=== PATIENT | male | born 1955 | race Caucasian/White ===

== ENCOUNTER → 2016-08-11 | Outpatient (CLI) | payer BC ==
--- NOTE | 2016-08-11 14:59 | DI ---
XR TIB/FIB 2VW,08/11/2016 10:04 AM: Clinical History: Left tibia/fibular pain. Previous Exam: February 26, 2016 Findings: AP and lateral views of the tibia and fibula are obtained, and demonstrate postsurgical changes consi stent with screw and plate fixation of the distal fibula. There is also an IM gerber noted within the tibia. There is lack screw fixation of the medial malleolus. There is a small hypodense area within the medial talar dome. Impression: Comminuted fracture of the left ankle with postsurgical fixation as above.
== END ==
LOC: ORTHO 09:56
PROVIDERS: ATTEND Orthopaedic Surgery
DX: M79.662 Pain in left lower leg (principal); S82.832E Other fracture of upper and lower end of left fibula, subsequent encounter for open fracture type I or II with routine healing; S82.392 Other fracture of lower end of left tibia
CPT/HCPCS: 73590

== ENCOUNTER → 2016-08-18 | Outpatient (CLI) | payer OTHER, BC ==
[2016-08-18 13:36] LABS: BLOOD UREA NITROGEN 16 mg/dL (7-22); BUN/CREATININE RATIO 17.77 (6-20); CALCIUM 9.4 mg/dL (8.7-10.7); EST GLOMERULAR FILTRATION > 60 (>60 ml/min/1.73m(2)); SERUM ALBUMIN 4.3 g/dL (3.5-4.8)
[2016-08-18 13:53] LABS: HEMATOCRIT 45.8 % (42.0-52.0); HEMOGLOBIN 15.5 g/dL (14.0-18.0); MEAN CORPUSCULAR HEMOGLOBIN 28.7 PG (27-31); MEAN CORPUSCULAR HGB CONC 33.8 g/dL (33-37); MEAN CORPUSCULAR VOLUME 84.7 FL (80-90); MEAN PLATELET VOLUME 9.9 FL (7.4-12.2); RED BLOOD COUNT 5.41 10^6/uL (4.70-6.10)
--- NOTE | 2016-08-18 18:12 | EKG ---
[address] [address] Measurements Intervals [place] Rate: 92 P: 59 TN: 190 QRS: 23 QRSD: 84 T: 29 QT: 324 QTc: 374 Interpretive Statements SINUS RHYTHM WITH OCCASIONAL VENTRICULAR PREMATURE COMPLEXES No previous ECG available for comparison Electronically Signed On 08-19-16 08:33:30 MDT by Bakari Webb [email or web address]
== END ==
LOC: LAB 13:03
PROVIDERS: ATTEND Orthopaedic Surgery
DX: Z01.812 Encounter for preprocedural laboratory examination (principal); Z01.810 Encounter for preprocedural cardiovascular examination; S82.252M Displaced comminuted fracture of shaft of left tibia, subsequent encounter for open fracture type I or II with nonunion
CPT/HCPCS: 36415; 80053; 85027; 87641; 93005; 93010

== ENCOUNTER 2016-08-28 09:56 | Day surgery (SDC) | payer OTHER, BC ==
[~2016-08-28 09:56] MED LIST: LIDOCAINE W/ SODIUM BICARB 0.5 ML SYR ONE; Lactated Ringers 1,000 ML PRIMARY IV ONE; ceFAZolin Inj 2gm (Premix) 50 ML IV ONE
[2016-08-28] MEDS ORDERED: BUPIVACAINE 0.25% W/ EPI - 10 ML VIAL ONE (11:09)
[2016-08-28] MEDS ORDERED: Lidocaine Inj 1% 0 ML ONE (11:09)
[2016-08-28] MEDS ORDERED: MIDAZOLAM 5 MG/1 ML ONE (11:12)
[2016-08-28] MEDS ORDERED: KETAMINE 100 MG/1 ML - 5 ML ONE (11:12)
[2016-08-28] MEDS ORDERED: fentaNYL Inj 250 MCG/5 ML VIAL ONE ×2 (11:12→13:05)
[2016-08-28] MEDS ORDERED: ROCURONIUM 10 MG/1 ML - 5 ML VIAL IVP ONE (11:16)
[2016-08-28] MEDS ORDERED: LIDOCAINE MPF 2% - 5 ML (20 MG/1 ML) ONE (11:18)
[2016-08-28] MEDS ORDERED: Lactated Ringers 1,000 ML PRIMARY IV ONE ×2 (13:27→15:54)
[2016-08-28] MEDS ORDERED: HYDROmorphone 2 MG/1 ML ONE (13:54)
[2016-08-28] MEDS ORDERED: SUGAMMADEX SODIUM 200 MG/2 ML VIAL IV ONE (14:19)
[2016-08-28] MEDS ORDERED: ONDANSETRON 4 MG/2 ML VIAL IVP PRN (14:28)
[2016-08-28] MEDS ORDERED: NORMAL SALINE 10 ML SYRINGE FLUSH IVP PRN (14:28)
[2016-08-28] MEDS ORDERED: oxyCODONE/APAP 7.5/325 Tab 1 TAB TAB PO PRN (14:28)
[2016-08-28] MEDS ORDERED: Lactated Ringers 1,000 ML PRIMARY IV SCH (14:30)
[2016-08-28] MEDS ORDERED: oxyCODONE/APAP 7.5/325 Tab 1 TAB TAB PO ONE (15:47)
[2016-08-28] MEDS ORDERED: fentaNYL Inj 250 MCG/5 ML VIAL IVP ONE (15:50)
[2016-08-28] MEDS ORDERED: fentaNYL Inj 100 MCG/2 ML VIAL ONE (15:52)
[2016-08-28 17:29] VITALS: RESP 17
[2016-08-28 17:39] VITALS: TEMP 97.6
== END 2016-08-28 17:17 | disposition home or self-care (01) ==
LOC: SDSC 09:56
PROVIDERS: ATTEND Orthopaedic Surgery
DX: S82.252M Displaced comminuted fracture of shaft of left tibia, subsequent encounter for open fracture type I or II with nonunion (principal)
CPT/HCPCS: 27758; 76001; 87070; 87075; 87205; J0690; J2704; J3010 ×2; J1170; J2001; J2250; J7120

== ENCOUNTER 2016-08-28 21:22 | Emergency (ER) | payer BC ==
--- NOTE | 2016-08-29 03:01 | PDOC ---
Lower Extremity Problem HPI - General Chief Complaint: General Medical Stated Complaint: BLEEDING FROM SURGICAL SITE Date Seen by Provider: 08/28/16 Time Seen by Provider: 21:30 Source: POSITIVE: Patient Exam Limitations: POSITIVE: No limitations Nurse's Notes Reviewed & Considered: Yes - History of Present Illness Initial Comments: The patient is a 61-year-old male who presents to the emergency department with bleeding from his incision site on his left leg. The patient has a history of distal tib-fib fracture in January of last year which required rodding of the tibia. He has had ongoing healing issues and had a repeat surgery earlier this afternoon with Dr. Schaffer. The gabino was apparently replaced with a bigger gabino. He states that since he's been home he has continued to have oozing from the lower incision site. This evening when he put his foot down there was blood actually dripping onto the floor from around the bandage. He denies any other associated complaints. He does not take any blood thinner medications and and generally does not have any bleeding problems. 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 Cardiovascular History: Denies History Respiratory History: Denies History Gastrointestinal History: Denies History Genitourinary History: Denies History Endocrine History: Denies History Musculoskeletal History: Back Pain Prosthesis or Implant: Yes (PLATE IN RIGHT SHOULDER/LEFT LEG GABINO SCREWS PLATES) Neurological History: Denies History Blood Disorders: Denies History Psychiatric History: Denies History History of Sexually Transmitted Diseases: No Cancer History: Denies History History of MDRO: No History of Other Communicable Diseases: No Alcohol Use: Occasionally Substance Use Type: None Previous Surgical History: Yes Type / Date of Surgery: R ORIF COLLAR BONE/BONE GRAFT FROM RIGHT HIP. LEFT TIBIAL ORIF WITH RODS/PLATES/SCREWS Anesthesia Reactions: No Malignant Hyperthermia: No Significant Family History: Heart disease, Diabetes, Hypertension Past Medical History Reviewed: Reviewed - No Changes ROS - Limitations ROS Limitations: No Limitations (Review of systems is otherwise noncontributory) Constitution: DENIES: Chills, Fever Lower Ext Problem Exam - General Appearance General Appearance: POSITIVE: Alert, Cooperative, No Acute Distress - Extremities Lower Extremity: POSITIVE: Other (Examination of the left lower extremity does reveal dressings from recent surgery earlier today. The dressing to the lower wound just proximal to the ankle is saturated with blood. This is removed. He has some bruising of darkish colored blood from the medial incision just proximal to the medial malleolus.) Vascular: POSITIVE: No Vascular Compromise Images - Uploaded Photos Uploaded Photos: Lower Ext Problem Progress - Patient's Progress MDM / ED Course: I did discuss the patient with Dr. Freire who is on-call for orthopedic surgery. He recommended a pressure dressing and posterior splint with follow- up with Dr. Schaffer. The patient was placed in a pressure dressing and did not appear to have any further significant bleeding. He was placed in a posterior splint to limit movement for now. He will return to the emergency room if continued or ongoing bleeding. He was advised that he can change the dressing as needed. He will contact Dr. Schaffer's office in the morning regarding follow -up. - Consult Counseled: POSITIVE: Patient, Family, RE: DX, RE: Need for F/U Patient Care Time - Estimated PCT Patient Care Time (In Minutes): 20 Vital Signs - VS Reviewed Vital Signs Reviewed: Yes (nursing documentation reviewed) Discharge Clinical Impression: Post-op bleeding Discharge Disposition: Discharged to Home Condition: Stable Additional Instructions: A new compression dressing has been placed over the wound as well as a splint to help keep the leg immobilized. Would recommend resting and keeping the leg elevated to help reduce bleeding. Return to the emergency room if increased bleeding, fever, any worsening or change in symptoms. Follow-up with Dr. Schaffer's office tomorrow. Follow Up With: NONE,NONE [Primary Care Provider] -
[2016-08-29 05:44] VITALS: RESP 18; TEMP 97.6
== END 2016-08-28 22:30 | disposition home or self-care (01) ==
LOC: ER 21:22
DX: M96.831 Postprocedural hemorrhage of a musculoskeletal structure following other procedure (principal)
CPT/HCPCS: 29515; 99282

== ENCOUNTER → 2016-09-10 | Outpatient (CLI) | payer OTHER, BC ==
[2016-09-10 11:23] LABS: CALCIUM 9.5 mg/dL (8.7-10.7)
[2016-09-10 11:41] LABS: VITAMIN D 25-HYDROXY 22.3 NG/ML (30-100)
== END ==
LOC: LAB 09:19
PROVIDERS: ATTEND Orthopaedic Surgery
DX: S82.252M Displaced comminuted fracture of shaft of left tibia, subsequent encounter for open fracture type I or II with nonunion (principal)
CPT/HCPCS: 36415; 82040; 82306; 82310; 84134; 84436; 84443; 84480

== ENCOUNTER → 2016-10-15 | Outpatient (CLI) | payer OTHER ==
--- NOTE | 2016-10-15 09:32 | DI ---
LEFT TIBIA AND FIBULA, 10/15/2016 8:35 AM: Clinical History: Left leg pain. Previous Exam: 08/11/2014. AP and lateral views are submitted. The patient is status post ORIF of fractures of the distal third of the tibia and the distal fibula and the medial malleolus. There is an intramedullary gerebr inserted into the tibia to transfix the tibial fracture. There is still a lucency at the fracture site and sin ce the prior exam, different screws have been inserted into the intramedullary gerber distally. There is some periosteal new bone formation extending into the interosseous membrane proximal to the tibial f racture site and the lateral margin of the tibial fracture on the AP projection is less visible sugge sting healing. On the AP projection, there has been no increase in lucency surrounding the intramedul naga gerber, but on the lateral projection, the lucency surrounding the intramedullary gerber is more promi nent in the proximal portion of the tibia suggesting there may be motion at the tibial fracture site. There has been no change in the appearance of the fibular fracture. Readin. Status post revision of the transfixion of the distal portion of the intramedullary gerber to the di stal tibial fracture site. There does appear to be some healing of the tibial fracture site, but ther e may also be some motion because there is increased lucency surrounding the IM gerber on the lateral pr ojection. 2. No change in the appearance of the distal fibular fracture site.
== END ==
LOC: RAD 09:28
PROVIDERS: ATTEND Orthopaedic Surgery
DX: S82.302E Unspecified fracture of lower end of left tibia, subsequent encounter for open fracture type I or II with routine healing (principal); S82.832E Other fracture of upper and lower end of left fibula, subsequent encounter for open fracture type I or II with routine healing
CPT/HCPCS: 73590

== ENCOUNTER 2016-10-27 15:14 | Emergency (ER) | payer OTHER ==
[2016-10-27] MEDS ORDERED: NORMAL SALINE 10 ML SYRINGE FLUSH IVP PRN (15:31)
[2016-10-27] MEDS ORDERED: Sodium Chloride 0.9% 1,000 ML PRIMARY IV ONE (15:34)
[2016-10-27 16:14] LABS: BLOOD UREA NITROGEN 13 mg/dL (7-22); BUN/CREATININE RATIO 18.57 (6-20); CALCIUM 9.2 mg/dL (8.7-10.7); EST GLOMERULAR FILTRATION > 60 (>60 ml/min/1.73m(2)); SERUM ALBUMIN 3.8 g/dL (3.5-4.8)
[2016-10-27 16:22] VITALS: RESP 20; TEMP 97.2
[2016-10-27 16:38] LABS: BASOPHILS % (AUTO) 0.7 % (0-1); EOSINOPHILS % (AUTO) 0.4 % (0-8); HEMATOCRIT 40.5 % (42.0-52.0); HEMOGLOBIN 13.8 g/dL (14.0-18.0); MEAN CORPUSCULAR HEMOGLOBIN 28.8 PG (27-31); MEAN CORPUSCULAR HGB CONC 34.1 g/dL (33-37); MEAN CORPUSCULAR VOLUME 84.4 FL (80-90); MEAN PLATELET VOLUME 9.6 FL (7.4-12.2); MONOCYTES % (AUTO) 8.2 % (5-15); NEUTROPHILS # (AUTO) 7.52 10*3/UL; NEUTROPHILS % (AUTO) 70.4 % (50-80)
[2016-10-27 16:39] LABS: BASOPHILS # (AUTO) 0.08 10*3/UL; EOSINOPHILS # (AUTO) 0.04 10*3/UL; LYMPHOCYTES # (AUTO) 2.16 10*3/uL; MONOCYTES # (AUTO) 0.88 10*3/UL (0.3-0.8); PLATELET MORPHOLOGY COMMENT NORMAL MORPHOLOGY (NORM); RBC MORPHOLOGY COMMENT NORMAL MORPHOLOGY (NORM); WBC MORPHOLOGY COMMENT NORMAL MORPHOLOGY (NORM)
--- NOTE | 2016-10-27 17:53 | PDOC ---
Lower Extremity Problem HPI - General Chief Complaint: Lower Extremity Problem/Injury Stated Complaint: Left lower leg wound Date Seen by Provider: 10/27/16 Time Seen by Provider: 15:17 Source: POSITIVE: Patient, Spouse, Old records Exam Limitations: POSITIVE: No limitations Nurse's Notes Reviewed & Considered: Yes - History of Present Illness Initial Comments: The patient is a 61-year-old male. Patient sustained a crush injury to his left ankle and lower leg 02/26/2016 when a heavy compressor fell onto his leg. Patient was initially treated with ORIF for comminuted distal tibia and fibula fractures by Dr. Schaffer at [facility] [place]. Patient states that he had repeat surgery on 28 August and the patient states that "they put in a bigger gabino" . Patient's chief complaint is that for the past 2 days he has noted some swelling and redness over the medial aspect of the ankle in the surgical incision line. Patient is also noted some seropurulent drainage from this area. Patient has had tenderness and states that the erythema has been spreading laterally. Patient states he feels he may have run a fever for the last 2 nights, but did not actually take his temperature. He is afebrile presently. No sensory motor or vascular symptoms. No other symptoms. Body Location Affected: REPORTS: Lower Extremity (L) Timing: REPORTS: Gradual, Getting Worse Duration: >24 hours (Patient states symptomatic for 48 hours approximately) Severity: Moderate Recent Injury: REPORTS: No Context of Injury: REPORTS: Other (As above; previous crush injury to left lower leg) Quality: REPORTS: "Pain" Modifying Factors: REPORTS: Walking, Movement, Other (Direct palpation) Associated Symptoms: DENIES: Chest Pain, Shortness of Breath, Rapid Heart Rate, Fainting, Other Similar Symptoms Previously: No Recent Care Received: REPORTS: Recently Seen, Treated by MD, Hospitalized, Surgery (As above) Any Prior Injuries Related to Current Complaint?: No - Patient Home Medications Home Medications: Home Medications Tramadol HCl 1 mg PO DAILY 08/28/16 - Patient Allergies Allergies/Adverse Reactions: Allergies Allergy/AdvReac Type Severity Reaction Status Date / Time No Known Allergies Allergy Verified 02/26/16 10:52 Past Medical History - heen HEENT History: Denies History Additional HEENT History: SOME DENTAL 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 Cardiovascular History: Denies History Respiratory History: Denies History Gastrointestinal History: Denies History Genitourinary History: Denies History Endocrine History: Denies History Musculoskeletal History: Back Pain Prosthesis or Implant: Yes (PLATE IN RIGHT SHOULDER/LEFT LEG GABINO SCREWS PLATES) Neurological History: Denies History Blood Disorders: Denies History Psychiatric History: Denies History History of Sexually Transmitted Diseases: No Cancer History: Denies History In Past Year Been Physically Harmed or Verbally Threatened: No History of MDRO: No History of Other Communicable Diseases: No Tobacco Use: Unknown If Ever Smoked Alcohol Use: Occasionally Substance Use Type: None Previous Surgical History: Yes Type / Date of Surgery: R ORIF COLLAR BONE/BONE GRAFT FROM RIGHT HIP. LEFT TIBIAL ORIF WITH RODS/PLATES/SCREWS Anesthesia Reactions: No Malignant Hyperthermia: No Significant Family History: Heart disease, Diabetes, Hypertension Past Medical History Reviewed: Reviewed - No Changes ROS - Limitations ROS Limitations: No Limitations Constitution: REPORTS: Fever (Subjectively) Cardiovascular: REPORTS: Denies Cardiac Symptoms Respiratory: REPORTS: Denies Resp Symptoms Neurological: REPORTS: Denies Neuro Symptoms Gastrointestinal: REPORTS: Denies GI Symptoms Endocrine: REPORTS: Denies Symptoms Musculoskeletal: REPORTS: Lower Extremity Swelling, Other (Warmth or tenderness swelling and redness at surgical site of previous ORIF of a comminuted tibia and fibular fracture) Genitourinary: REPORTS: Denies Symptoms Eyes: REPORTS: Denies Symptoms ENT: REPORTS: Denies Symptoms Skin: REPORTS: Other (Rubor calor and dolor as above; see diagram) Lympathic: REPORTS: Denies Lympathic Symptoms Immunologic: POSITIVE: Denies Symptoms Psychiatric: POSITIVE: Denies Psych Symptoms Lower Ext Problem Exam - General Appearance General Appearance: POSITIVE: Alert, Cooperative, No Acute Distress. NEGATIVE: No Evidence of Trauma - Extremities Lower Extremity: POSITIVE: Ankle, Tenderness, Swelling, Other (Lower leg see diagram) Joint Exam: POSITIVE: Joints Normal (Swelling left ankle), Normal ROM, Painful. NEGATIVE: Normal Gait (Patient states he is unable to bear weight) Vascular: POSITIVE: No Vascular Compromise, Full Pulses, Equal Pulses - Neuro / Psych Neuro/Psych: POSITIVE: Sensation Normal, Motor Normal, Oriented to Person, Oriented to Place, Oriented to Time, water purifier Normal as Tested, Mood Appropriate, Affect Appropriate - Neck / Back / Pelvis Back / Neck: POSITIVE: Normal Inspection, Normal ROM - Skin Skin: POSITIVE: Warmth, Erythema, Other (Some seropurulent drainage medial aspect of lower leg at site of incision for previous ORIF as above) - Respiratory / CVS Respiratory / CVS: POSITIVE: No Respiratory Distress, Breath Sounds Normal, Regular Rate/Rhythm, Heart Sounds Normal Peripheral Pulses: Radial (R): 2+, Radial (L): 2+, Dorsalis-pedis (R): 2+, Dorsalis-pedis (L): 2+ - Abdomen Abdomen: Soft: (All Quadrants), Normal Bowel Sounds: (All Quadrants), Denies Tenderness: (All Quadrants), No Splenomegaly: (All Quadrants), No Hepatomegaly: (All Quadrants), No Guarding: (All Quadrants), No Rebound: (All Quadrants), No Palpable Pulse: (All Quadrants), No Palpabale Mass: (All Quadrants), No Distention: (All Quadrants), No Rigidity: (All Quadrants) Images - Uploaded Photos Uploaded Photos: - Lower Extremities Lower Extremities: 1 - Redness, swelling, pain, some drainage at surgical site 2 - Surgical site 3 - Redness and swelling Lower Ext Problem Progress - Results Reviewed by me Xrays/CTs/US Reviewed by me: Yes Discussed with Radiologist: No Radiology Findings: Previous fractures and with instrumentation noted. No definite osteomyelitis seen by my interpretation; radiologist interpretation pending. Lab Results Reviewed: Yes (blood cultures drawn and results pending) Lab Results:: Laboratory Results 10/27/16 Range/Units 15:48 WBC 10.69 (4.8-10.8) 10^3/uL RBC 4.80 (4.70-6.10) 10^6/uL Hgb 13.8 L (14.0-18.0) g/dL Hct 40.5 L (42.0-52.0) % MCV 84.4 (80-90) FL MCH 28.8 (27-31) PG MCHC 34.1 (33-37) g/dL RDW Std Deviation 40.5 (39-50) fL RDW Coeff of Aries 13.3 (11.5-14.5) % Plt Count 453 H (140-350) 10*3/uL MPV 9.6 (7.4-12.2) FL Immature Gran % (Auto) 0.1 (0-5) % Neut % (Auto) 70.4 (50-80) % Lymph % (Auto) 20.2 (10-50) % Tillman % (Auto) 8.2 (5-15) % Eos % (Auto) 0.4 (0-8) % Baso % (Auto) 0.7 (0-1) % Immature Gran # (Auto) 0.01 10*3/UL Neut # (Auto) 7.52 10*3/UL Lymph # (Auto) 2.16 10*3/uL Tillman # (Auto) 0.88 H (0.3-0.8) 10*3/UL Eos # (Auto) 0.04 10*3/UL Baso # (Auto) 0.08 10*3/UL WBC Morphology Comment Normal morphology (NORM) Plt Morphology Comment Normal morphology (NORM) RBC Morph Comment Normal morphology (NORM) Sodium 133 L (135-145) meq/L Potassium 3.9 (3.8-5.2) meq/L Chloride 99 (98-112) meq/L Carbon Dioxide 24 (23-33) meq/L Anion Gap 10 (5-20) BUN 13 (7-22) mg/dL Creatinine 0.7 (0.70-1.50) mg/dL Estimated GFR > 60 (>60 ml/min/1.73m(2)) BUN/Creatinine Ratio 18.57 (6-20) Glucose 99 (78-110) mg/dL Calculated Osmolality 275.0 (267-292) mOsm/kg Calcium 9.2 (8.7-10.7) mg/dL Total Bilirubin 0.7 (0.3-1.2) mg/dL AST 69 H (21-57) IU/L ALT 87 H (21-72) IU/L Alkaline Phosphatase 76 (38-126) IU/L C-Reactive Protein 18.6 H (0.0-0.9) mg/dL Total Protein 7.9 (6.1-8.0) g/dL Albumin 3.8 (3.5-4.8) g/dL Globulin 4.1 (2.50-4.10) g/dL Albumin/Globulin Ratio 0.90 L (1.3-2.0) mg/g - Patient's Progress Pain Medication Addressed: POSITIVE: Yes School/Work Release Addressed: POSITIVE: Not Applicable Re-Examine Time: 16:50 Re-Examine Comment: Dr. Freire, orthopedic surgeon aeronautical project engineer, consulted. He evaluated the patient and advised the patient to follow-up with his primary surgeon, Dr. Schaffer. Re-Examine Time:: 17:00 Re-Examine Comment: Dr. Schaffer's office contacted. Spoke with Dr. Elizabeth, orthopedist aeronautical project engineer for Dr. Schaffer. Dr. Schaffer will be in his office until 8 PM this evening and will be expecting the patient. Patient to proceed directly to Dr. Schaffer's office for further evaluation and treatment. Status: POSITIVE: Unchanged, Re-Examined - Consult Consult (If Yes, Name of Consulting MD & Time Called): Yes (Drs. Freire and Glenn as above) Consulting MD will see pt:: POSITIVE: Recommended Transfer Counseled: POSITIVE: Patient, Family, RE: Lab Results, RE: Radiology Results, RE : DX, RE: Need for F/U Patient Care Time - Estimated PCT Patient Care Time (In Minutes): 60 Vital Signs - Recent Vital Signs Vital Signs: Vital Signs (Last 8 hours) Temp Pulse Resp BP Pulse Ox 10/27/16 15:18 97.2 F 90 20 173/108 96 - VS Reviewed Vital Signs Reviewed: Yes Discharge Clinical Impression: Post op infection Discharge Disposition: Other (TO proceed directly to Dr. Schaffer's office now for further evaluation and treatment) Condition: Good Patient Instructions Given at Discharge: Wound Infection (ED) Additional Instructions: Dr. Schaffer, your orthopedist will be in his clinic until 8 PM tonight. Please proceed directly to his clinic for further evaluation and treatment. Please take the laboratory values from your visit today with you. Return here anytime if condition worsens in any way. Follow Up With: NONE,NONE [Primary Care Provider] - (Proceed directly to Dr. Schaffer's office for further evaluation and treatment. Return here as necessary.)
--- NOTE | 2016-10-28 06:32 | DI ---
XR ANKLE 2VW,10/27/2016 3:32 PM: Clinical History: Postoperative infection Previous Exam: February 26, 2016 Findings: 3 views of the left ankle are obtained, and demonstrate diffuse osteopenia. There is new screw and plate fixation of the distal fibula as well as lag screw fixation of the media l malleolus. There is an IM gerber within the left tibia. Diffuse osteopenia is seen. Soft tissue swelling is noted. Impression: Postsurgical changes as above.
--- NOTE | 2016-10-28 06:32 | DI ---
XR TIB/FIB 2VW,10/27/2016 3:32 PM: Clinical History: Postoperative infection. Previous Exam: October 15, 2016 Findings: 2 views of the left tibia and fibula are obtained, and demonstrate a comminuted fracture of the left distal tibia. Postsurgical changes are seen consistent with screw and plate fixation of the fibula an d an IM gerber within the tibia. There is a lag screw fixation of the medial malleolus. Impression: There has been some interval healing of a comminuted fracture of the distal tibia since the prior irvina m.
== END 2016-10-27 17:58 | disposition home or self-care (01) ==
LOC: ER 15:14
DX: T81.4XXA Infection following a procedure, initial encounter (principal); G89.18 Other acute postprocedural pain; R22.42 Localized swelling, mass and lump, left lower limb; Y99.0 Civilian activity done for income or pay
CPT/HCPCS: 36415; 73590; 73600; 80053; 85025; 86140; 87070; 87077; 87186; 87205; 99283; J7030

== ENCOUNTER 2016-11-10 05:56 | Day surgery (SDC) | payer BC, OTHER ==
[2016-11-10] MEDS ORDERED: SUFENTANIL 50 MCG/1 ML ONE (06:31)
[2016-11-10] MEDS ORDERED: MIDAZOLAM 5 MG/1 ML ONE (06:31)
[2016-11-10] MEDS ORDERED: Sodium Chloride 0.9% vial 10 ML ONE (06:34)
[2016-11-10] MEDS ORDERED: KETAMINE 100 MG/1 ML - 5 ML ONE (06:40)
[2016-11-10] MEDS ORDERED: BUPIVACAINE 0.25% W/ EPI - 10 ML VIAL ONE (06:47)
[2016-11-10] MEDS ORDERED: SUCCINYLCHOLINE CHLORIDE 20 MG/1 ML - 10 ML ONE (07:37)
[2016-11-10] MEDS ORDERED: GLYCOPYRROLATE 0.2 MG/1 ML VIAL ONE (07:43)
[2016-11-10] MEDS ORDERED: DEXAMETHASONE PF 10 MG/1 ML VIAL ONE (08:20)
[2016-11-10] MEDS ORDERED: Lactated Ringers 1,000 ML PRIMARY IV ONE ×2 (08:20→10:06)
[2016-11-10] MEDS ORDERED: ONDANSETRON 4 MG/2 ML VIAL ONE (08:21)
[2016-11-10] MEDS ORDERED: LIDOCAINE MPF 2% - 5 ML (20 MG/1 ML) ONE (08:42)
[2016-11-10] MEDS ORDERED: HYDROmorphone 2 MG/1 ML ONE (08:44)
[2016-11-10] MEDS ORDERED: ESMOLOL HCL 100 MG/10 ML VIAL ONE (08:44)
[2016-11-10] MEDS ORDERED: CALCIUM CARBONATE 500 MG (TUMS) CHEWABLE TABLET PO PRN (08:57)
[2016-11-10] MEDS ORDERED: oxyCODONE-ACETAMINOPHEN 5-325 TAB PO PRN (08:57)
[2016-11-10] MEDS ORDERED: diphenhydrAMINE 25 MG CAPSULE PO PRN (08:57)
[2016-11-10] MEDS ORDERED: Ondansetron ODT Tab 8 MG TAB PO PRN (08:57)
[2016-11-10] MEDS ORDERED: IBUPROFEN 400 MG TABLET PO PRN (08:57)
[2016-11-10] MEDS ORDERED: ACETAMINOPHEN 325 MG TABLET PO PRN (08:57)
[2016-11-10] MEDS ORDERED: ONDANSETRON 4 MG/2 ML VIAL IVP PRN (08:57)
[2016-11-10] MEDS ORDERED: BISACODYL 10 MG SUPPOSITORY RECTAL PRN (08:57)
[2016-11-10] MEDS ORDERED: NORMAL SALINE 10 ML SYRINGE FLUSH IVP PRN ×2 (08:57→09:32)
[2016-11-10] MEDS ORDERED: MAG HYDROX/AL HYDROX/SIMETH 30 ML SUSP PO PRN (08:57)
[2016-11-10] MEDS ORDERED: BISACODYL 5 MG TABLET PO PRN (08:57)
[2016-11-10] MEDS ORDERED: Prochlorperazine Tab 10 MG TAB PO PRN (08:57)
[2016-11-10] MEDS ORDERED: ATROPINE SULFATE 0.4 MG/1 ML VIAL IVP PRN (09:32)
[2016-11-10] MEDS ORDERED: HYDROmorphone 2 MG/1 ML IVP PRN (09:32)
[2016-11-10] MEDS ORDERED: Lactated Ringers 1,000 ML PRIMARY IV SCH (09:45)
[2016-11-10] MEDS ORDERED: KETOROLAC 30 MG/1 ML VIAL ONE (09:53)
[2016-11-10] MEDS ORDERED: KETOROLAC 15 MG/1 ML VIAL IVP ONE (09:56)
[2016-11-10 09:59] VITALS: RESP 18
[2016-11-10] MEDS ORDERED: oxyCODONE-ACETAMINOPHEN 5-325 TAB PO ONE (10:28)
[2016-11-10 12:01] VITALS: TEMP 96.9
== END 2016-11-10 11:50 | disposition home or self-care (01) ==
LOC: SDSC 05:56
PROVIDERS: ATTEND Orthopaedic Surgery
DX: S82.252M Displaced comminuted fracture of shaft of left tibia, subsequent encounter for open fracture type I or II with nonunion (principal)
CPT/HCPCS: 27759; 76000; A4216; J0330; J0690; J1100; J1170; J1885; J2001; J2250; J2405; J2704; J7120